=== PATIENT | female | born 1975 | race Caucasian/White ===

== ENCOUNTER 2017-12-29 21:26 | Emergency (ER) | payer OTHER ==
[2017-12-29 21:31] VITALS: BP 131/62; PULSE 84; TEMP 97.4; BMI 44.2
--- NOTE | 2017-12-29 22:19 | PDOC ---
History of Present Illness - History of Present Illness Initial Comments: 12/29/17 22:16 Ms. Moore is a 42 yo female w/ pmh of asthma who presents for evaluation as she lost track of her tampon earlier this evening. She reports she used a new brand today and was unable to grab the strings earlier and so would like assistance removing it. The patient denies chest pain, shortness of breath, headache and dizziness. Denies fever, chills, nausea, vomit, diarrhea and constipation. Denies dysuria, frequency, urgency and hematuria. 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 No weakness. HEAD, EYES, EARS, NOSE AND THROAT: No change in vision. No ear pain or discharge. No sore throat. CARDIOVASCULAR: No chest pain or shortness of breath RESPIRATORY: No cough, wheezing, or hemoptysis. GASTROINTESTINAL: No nausea, vomiting, diarrhea or constipation. GENITOURINARY: No dysuria, frequency, or change in urination. MUSCULOSKELETAL: No joint or muscle swelling or pain. No neck or back pain. SKIN: No rash NEUROLOGIC: No headache, vertigo, loss of consciousness, or change in strength/ sensation. ENDOCRINE: No increased thirst. No abnormal weight change HEMATOLOGIC/LYMPHATIC: No anemia, easy bleeding, or history of blood clots. ALLERGIC/IMMUNOLOGIC: No hives or skin allergy. <Markos Sierra - Last Filed: 12/29/17 23:59> *Physical Exam - Vital Signs Last Vital Signs Temp Pulse Resp BP Pulse Ox 97.4 F L 84 18 131/62 100 12/29/17 21:29 12/29/17 21:29 12/29/17 21:29 12/29/17 21:29 12/29/17 21:29 - Physical Exam Comments: 12/29/17 22:18 GENERAL: Awake, alert, and fully oriented, in no acute distress HEAD: No signs of trauma, normocephalic, atraumatic EYES: PERRLA, EOMI, sclera anicteric, conjunctiva clear ENT: Auricles normal inspection, hearing grossly normal, nares patent, oropharynx clear without exudates. Moist mucosa NECK: Normal ROM, supple, no lymphadenopathy, JVD, or masses LUNGS: No distress, speaks full sentences, clear to auscultation bilaterally HEART: Regular rate and rhythm, normal S1 and S2, no murmurs, rubs or gallops, peripheral pulses normal and equal bilaterally. ABDOMEN: Soft, nontender, normoactive bowel sounds. No guarding, no rebound. No masses EXTREMITIES: Normal inspection, Normal range of motion, no edema. No clubbing or cyanosis. NEUROLOGICAL: Cranial nerves II through XII grossly intact. Normal speech, normal gait, no focal sensorimotor deficits SKIN: Warm, Dry, normal turgor, no rashes or lesions noted. : No CMT, scant blood noted in adnexal vault. No masses or lesions. <Markos Sierra - Last Filed: 12/29/17 23:59> - Vital Signs Last Vital Signs Temp Pulse Resp BP Pulse Ox 97.4 F L 84 18 131/62 100 12/29/17 21:29 12/29/17 21:29 12/29/17 21:29 12/29/17 21:29 12/29/17 21:29 <Chase Harrison - Last Filed: 12/30/17 01:03> Medical Decision Making - Medical Decision Making 12/29/17 22:18 Ms. Moore is a 42 yo female w/ pmh of asthma who presents for removal of tampon. 12/29/17 23:25 Unable to find tampon on physical exam. Patient sent for US to confirm no retained foreign body present. 12/29/17 23:56 Patient signed out to Dr. Harrison for further care. <Markos Sierra - Last Filed: 12/29/17 23:59> - Medical Decision Making Through speculum exam x 2 and bimanual exam did not demonstrate retained tampon U/S with no evidence of retained FB. Pt. instructed to return to ED for any fever vaginal pain or any concerns otherwise she was instructed to F/U with her ELEVATOR OPERATOR FREIGHT on Sunday Findings the need for F/U and strict return instructions D/W patient <Chase Harrison - Last Filed: 12/30/17 01:03> *DC/Admit/Observation/Transfer <Markos Sierra - Last Filed: 12/29/17 23:59> - Discharge Dispostion Admit: No <Chase Harrison - Last Filed: 12/30/17 01:03> Diagnosis at time of Disposition: Foreign body - Discharge Dispostion Disposition: HOME Condition at time of disposition: Good - Patient Instructions Additional Instructions: Follow up with your OBGYN on sunday. Return to ED for any fever, heavy bleeding , vaginal or abdominal pain or for any concerns.
--- NOTE | 2017-12-29 23:12 | PDOC ---
Attending Attestation - HPI HPI: 12/29/17 23:12 The patient is a 42 year old female with a past medical history of asthma who presents to the ED for evaluation of lost track of her tampon since earlier today. The patient reports she used a new tampon today and was unable to grab the string to remove it. Patient comes into the ED today, for assistance in removing the tampon. Patient states she is on the first day of her menstrual cycle and reports regular menstrual abdominal cramping. Denies nausea, vomiting, or diarrhea. Denies chest pain or shortness of breath. Denies dysuria. Denies any other symptoms. Documentation prepared by Gary Santos, acting as medical reimbursement specialist for Chase Harrison MD - Physicial Exam PE: 12/29/17 23:12 Vitals: Triage Vital signs reviewed General Appearance: no acute distress, well nourished well developed, Head: Atraumatic, normocephalic Chest Wall: Nontender Cardiac: Regular rate and rhythm, no murmurs, no rubs, no gallops, Lungs: Clear to auscultation bilateral, good air movement bilaterally, Abdomen: Soft, nondistended, normal bowel sounds, nontender to palpation Vaginal: + No retained tampon on speculum exam and by manual exam. Extremities: Full range of motion to all extremities, no cyanosis, clubbing, or edema Skin: Warm and dry, no rashes or lesions, no petechiae Neuro: AOX3; Cranial Nerves 2-12 grossly c intact, Strength intact to all extremities, Sensation intact to all extremities, gait normal Psych: normal mood, normal affect <Gary Santos - Last Filed: 12/29/17 23:12> - Resident Resident Name: Markos Sierra - Medical Decision Making 12/29/17 23:45 1st trimester vaginal spotting + gestational sac on US. Blood type RH+ hx and exam c/w early ,threatened ab, less likely ectopic Pt. will f/u in 2 days with her PROTECTION CONSULTANT, she will return to ED for any severe pain, heavy bleeding or for any concerns Findings the need for follow up and strict return instructions d/w pt. <Chase Harrison - Last Filed: 12/29/17 23:48>
== END 2017-12-30 01:38 | disposition home or self-care (01) ==
LOC: JER 21:26
DX: T19.2XXA Foreign body in vulva and vagina, initial encounter (principal); X58.XXXA Exposure to other specified factors, initial encounter; Y93.89 Activity, other specified; Y92.89 Other specified places as the place of occurrence of the external cause; Y99.8 Other external cause status
CPT/HCPCS: 76830-TC; 99283-25